=== PATIENT | male | born 1945 | race Caucasian/White ===

== ENCOUNTER 2016-11-18 10:54 | Outpatient (CLI) | payer OTHER | END 2016-11-18 10:55 | LOC: LAB 10:54 | PROVIDERS: ATTEND Family Medicine | DX: K59.01 Slow transit constipation (principal) | CPT/HCPCS: 36415; 84443 ==

== ENCOUNTER 2018-02-09 10:12 | Outpatient (CLI) | payer OTHER ==
[2018-02-09 10:46] LABS: MEAN CORPUSCULAR HEMOGLOBIN 31.1 pg (28.0-34.0); MEAN CORPUSCULAR VOLUME 95.4 fl (80.0-100.0)
[2018-02-09 11:08] LABS: eGFR (African) > 60; eGFR (Non-African) > 60
--- NOTE | 2018-02-09 16:30 | Diagnostic Imaging Report ---
SELVIN MCKINNON [facility] [address] [facility]. [address] [place], [place]. [address] Report Submission Date: Feb 09, 2018 11:01:46 AM CDT Patient Study Name: FALLON SAMUELS Date: Feb 09, 2018 10:31:28 AM CDT Modality Type: DX Gender: M Description: CHEST : 41 Institution: [facility] Physician: SELVIN MCKINNON Examination: PA and lateral chest. History: Evaluate lung campoverde. PT STATES PRODUCTIVE COUGH X 8 MONTHS (Hx) Comparison exam: None provided. Findings: PA lateral chest demonstrate a normal cardiac and mediastinal silhouette. Vascular calcifications involving aortic arch. No focal infiltrate. No blunting of the costophrenic margins. Bilateral shoulder replacement. Surgical clips in the region of the gastroesophageal junction. Impression: No acute appearing pulmonary process. Electronically signed on Feb 09, 2018 11:01:46 AM CDT by: Sam RAYMOND
== END 2018-02-09 10:13 ==
LOC: LAB 10:12
PROVIDERS: ATTEND Family Medicine
DX: R05 Cough (principal); R53.1 Weakness
CPT/HCPCS: 36415; 71046; 80053; 85027